=== PATIENT | male | born 1940 | race Caucasian/White ===

== ENCOUNTER 2019-06-17 08:00 | Inpatient (IN) | payer OTHER ==
[~2019-06-17] VITALS: Ht 167.6 cm; Wt 92.5 kg
[2019-06-17] MEDS ORDERED: FLECAINIDE ACET50 MG PO (08:16)
[2019-06-17] MEDS ORDERED: LIPITOR20 MG PO (08:16)
[2019-06-17] MEDS ORDERED: ASA81 MG PO (08:16)
[2019-06-17] MEDS ORDERED: METOPROLOL SUC100 MG PO (08:17)
[2019-06-17] MEDS ORDERED: LOSARTAN POTASS50 MG PO (08:17)
== END 2019-06-23 10:12 | disposition home or self-care (01) | DRG 664 ==
LOC: ADM 08:00 → EDSTATUS 08:00 → SURH 06-18 08:00 → O/R 06-21 05:36 → SURH 06-21 08:00
PROVIDERS: ADMIT Urology
PROC: 0THD8LZ Insertion of Artificial Sphincter into Urethra, Via Natural or Artificial Opening Endoscopic (ICD-10-PCS; principal; 2019-06-21 09:00)
DX: N39.498 Other specified urinary incontinence (principal); N32.81 Overactive bladder
CPT/HCPCS: 53445; C1815

== ENCOUNTER 2020-10-11 16:46 | Inpatient (IN) | payer OTHER ==
[~2020-10-11] VITALS: Ht 200.7 cm; Wt 79.4 kg
[~2020-10-11 16:46] MED LIST: ASA81 MG PO; FLECAINIDE ACET50 MG PO; LIPITOR20 MG PO; LOSARTAN POTASS50 MG PO; METOPROLOL SUC100 MG PO
--- NOTE | 2020-10-11 17:09 | NUR ---
SE RECIBE PTE ALERTA Y ORIENTADO X3,REFERIDO POR EL DR.EDUARDO ANAYA PARA ADMICION ,PTE REFIERE TENER DOLOR EN EL AREA DEL ESCROTO.
== END 2020-10-20 12:15 | disposition home or self-care (01) | DRG 663 ==
LOC: ER 16:46 → SURH 17:25 → SEC-K 17:25 → SURH 10-12 10:05
PROVIDERS: ADMIT Urology; ATTEND Urology
PROC: 0TP Urinary System, Removal (ICD-10-PCS; principal; 2020-10-11 18:00)
DX: T83.591A Infection and inflammatory reaction due to implanted urinary sphincter, initial encounter (principal); N30.00 Acute cystitis without hematuria; R33.8 Other retention of urine; Z20.828 Contact with and (suspected) exposure to other viral communicable diseases

== ENCOUNTER 2020-10-22 14:36 | Emergency (ER) | payer OTHER ==
[~2020-10-22] VITALS: Ht 167.6 cm; Wt 88.5 kg
[2020-10-22] MEDS ORDERED: BACTRIM 400-801 EACH (15:13)
[2020-10-22] MEDS ORDERED: DITROPAN XL10 MG (15:14)
== END 2020-10-22 20:50 | disposition home or self-care (01) ==
LOC: ER 14:36
DX: N39.0 Urinary tract infection, site not specified (principal); Z03.818 Encounter for observation for suspected exposure to other biological agents ruled out

== ENCOUNTER 2020-11-05 20:59 | Emergency (ER) | payer OTHER ==
[~2020-11-05] VITALS: Ht 167.6 cm; Wt 88.5 kg
[~2020-11-05 20:59] MED LIST changes: +BACTRIM 400-801 EACH; +DITROPAN XL10 MG
== END 2020-11-05 22:53 | disposition home or self-care (01) ==
LOC: ER 20:59
DX: T83.018A Breakdown (mechanical) of other urinary catheter, initial encounter (principal)